=== PATIENT | female | born 1950 | race Caucasian/White ===

== ENCOUNTER → 2018-04-16 | Outpatient (CLI) | payer OTHER ==
--- NOTE | 2018-04-16 10:23 | PCVCIMAG ---
APPROVED REPORT Indications Stenosis Risk Factors Hypertension: Hyperlipidemia Diabetes Doppler Spectral Velocity Analysis PSV / EDVPSV / EDV ECA (R) 107 / 13 cm/sECA (L) 109 / 15 cm/s dICA (R) 86 / 19 cm/sdICA (L) 73 / 22 cm/s Beatris (R) 72 / 25 cm/smICA (L) 67 / 27 cm/s pICA (R) 76 / 21 cm/spICA (L) 64 / 19 cm/s Bulb (R) 52 / 14 cm/sBulb (L) 69 / 14 cm/s dCCA (R) 74 / 19 cm/sdCCA (L) 81 / 18 cm/s mCCA (R) 83 / 22 cm/smCCA (L) 94 / 15 cm/s Vert (R) 41 / 10 cm/sVert (L) 56 / 19 cm/s ICA/CCA 1.03ICA/CCA 0.78 Basic Measurements Blood Pressure: Pulses: Right Left RightLeft Brachial(Sitting) 120/81gvTj473/80mmHgTemporal Real Time B-Mode Imaging Vert. (R)AntegradeVert. (L)Antegrade Findings The right carotid bulb has moderate calcified plaque. The right proximal internal carotid artery shows <40% stenosis. The right common carotid artery shows no significant stenosis. The right external carotid artery shows no significant stenosis. The left carotid bulb has moderate calcified plaque. The left proximal internal carotid artery shows <40% stenosis. The left common carotid artery shows no significant stenosis. The left external carotid artery shows no significant stenosis. Conclusion 1. Right internal carotid artery stenosis (<40%) 2. Left internal carotid artery stenosis (<40%) 3. Antegrade vertebral flow
== END | disposition home or self-care (01) ==
LOC: PCVCIMAG 09:59
PROVIDERS: ATTEND Internal Medicine
DX: I65.23 Occlusion and stenosis of bilateral carotid arteries (principal); E11.9 Type 2 diabetes mellitus without complications; E78.5 Hyperlipidemia, unspecified; I10 Essential (primary) hypertension; F32.9 Major depressive disorder, single episode, unspecified
CPT/HCPCS: 93880

== ENCOUNTER → 2019-03-17 | Outpatient (CLI) | payer OTHER ==
[~2019-03-17] MED LIST: REGADENOSON 0.4 MG/5 ML DISP.SYRIN. IV ONE
--- NOTE | 2019-03-17 09:12 | PCVCIMAG ---
EXAM: BILATERAL CAROTID DUPLEX INDICATION: Carotid Occlusive Disease. FINDINGS: Doppler Measurements (centimeters per second): RIGHT: Peak CCA-68, Peak ECA-104, Diastolic ICA-27, Peak ICA-80, ICA/CCA Ratio-1.2. LEFT: Peak CCA-79, Peak ECA-81, Diastolic ICA-33, Peak ICA-93, ICA/CCA Ratio-1.2. RIGHT CAROTID: The carotid bulb has moderate plaque. The proximal internal carotid artery shows <40% stenosis. The common carotid artery shows no significant stenosis. The external carotid artery shows no significant stenosis. LEFT CAROTID: The carotid bulb has moderate plaque. The proximal internal carotid artery shows <40% stenosis. The common carotid artery shows no significant stenosis. The external carotid artery shows no significant stenosis. Antegrade flow in both vertebral arteries. IMPRESSION: <40% stenosis of the right internal carotid artery with moderate plaque. <40% stenosis of the left internal carotid artery with moderate plaque. No change since March 2018 study. LOC:[id number]
--- NOTE | 2019-03-17 12:34 | PCVCIMAG ---
APPROVED REPORT Imaging Protocol: Rest Tc-99m/Stress Tc-99m 1 day Study performed: 03/17/2019 09:22:28 Indication: Dyspnea, Palpitations Patient Location: Out-Patient Stress Nurse: Gabriela Oshea RN, Mayelin Bennett RN [place] Tech:Tan ERIKA Mcmillan Ht: 5 ft 4 in Wt: 220 lbs BSA: 2.04 m2 HR: 72 bpm BP: 138/61 mmHg BMI: 37.7 Rhythm: Sinus Rhythm Medical History Medical History: Age, HLP, HTN, CVD, DM (non-insulin), Family HX CAD, Sleep Apnea Medications: Metoprolol, Pravastatin Allergies: Morphine, Sulfa Exercise History: Sedentary Meds Held (24 hrs): Metoprolol Resting Data Rest SPECT myocardial perfusion imaging was performed in supine position 45 minutes following the intravenous injection of 13.4 mCi of Tc-99m Sestamibi. Time of rest injection: 1005 Date: 03/17/2019 Administration Route: IV Administration Site: Right Arm Pharmacologic Stress Pharmacologic stress test was performed by injecting Regadenoson 0.4 mg IV push over 10-15 seconds immediately followed by the intravenous injection of 43.8 mCi of Tc-99m Sestamibi. Time of stress injection: 1030 Date: 03/17/2019 Administration Route: IV Administration Site: Right Arm Gated Stress SPECT was performed 45 minutes after stress injection. The images were gated to evaluate regional wall motion and calculate left ventricular ejection fraction. Stress Test Details Stress Test: Pharmacologic stress was paired with low level exercise. Reason for pharmacologic stress test: physical limitations. HRMax Heart Rate (APMHR): 154 bpm Resting HR: 72 bpmTarget HR (85% APMHR): 130 bpm Max HR Achieved: 96 bpm % of APMHR: 62 Recovery HR: 73 bpm BP Resting BP: 138/61 mmHg Max BP: 133/63 mmHg Recovery BP: 119/60 mmHg ECG Resting ECG: Sinus Rhythm Stress ECG: Sinus Rhythm ST Change: None Maximum ST Deviation: 0 mm Arrhythmia: None Recovery ECG: Sinus Rhythm Recovery ST Change: Normal Recovery ST Deviation: 0 mm Recovery Arrhythmia: None Clinical Reason for Termination: Completed protocol Stress Symptoms: Dyspnea, Dizziness Symptoms resolved with caffeine. Stress ECG Conclusion ECG: Non-ischemic Clinical: Non-ischemic Study Quality Study: Good Study Data Post stress, the left ventricular ejection was 75%.. SSS: 0 SRS: 1 SDS: 0 TID = 0.89. Perfusion No evidence of stress induced ischemia or prior myocardial infarction. Wall Motion Normal left ventricular size and function with no regional wall motion abnormalities. Nuclear Conclusion No evidence of stress induced ischemia or prior myocardial infarction. Normal left ventricular size and function with no regional wall motion abnormalities. Post stress, the left ventricular ejection was 75%. No prior study available for comparison. Interpreted by: Serge James MD Electronically Approved: 03/17/2019 12:15:56 <Conclusion> ECG: Non-ischemic Clinical: Non-ischemic
== END | disposition home or self-care (01) ==
LOC: PCVCIMAG 08:29
PROVIDERS: ATTEND Internal Medicine
DX: I65.23 Occlusion and stenosis of bilateral carotid arteries (principal); R00.2 Palpitations; R06.00 Dyspnea, unspecified; I10 Essential (primary) hypertension; E78.5 Hyperlipidemia, unspecified; G47.33 Obstructive sleep apnea (adult) (pediatric); E11.9 Type 2 diabetes mellitus without complications; Z87.891 Personal history of nicotine dependence
CPT/HCPCS: 78452; 93017; 93880; A9500; J2785